=== PATIENT | male | born 1945 | race Caucasian/White ===

== ENCOUNTER 2017-02-11 13:37 | Emergency (ER) | payer OTHER ==
[~2017-02-11] VITALS: Ht 172.7 cm; Wt 79.4 kg
[~2017-02-11 13:37] MED LIST: AUGMENTIN 875875 MG PO; CHILDREN'S ASPI81 M1 PO; CITALOPRAM HBR40 MG PO; DOXYCYCLINE HY100 M4 PO; FINASTERIDE5 M1 PO; FISH OIL 1,2001 EAC2 PO; GLIPIZIDE ER2.5 M1 PO; KEFLEX500 MG PO; METFORMIN HCL500 M2 PO; TAMSULOSIN HYD0.4 MG PO; WELLBUTRIN XL300 M2 PO; ZOCOR10 M1 PO
--- NOTE | 2017-02-11 13:50 | ED MVC/FALL/TRAUMA COMPLAINT ---
History of Present Illness General Chief Complaint: Fall Stated Complaint: FALL Source: patient, family, old records, EMS Exam Limitations: no limitations Vital Signs & Intake/Output Vital Signs & Intake/Output Vital Signs Date Time Temp Pulse Resp B/P B/P Pulse O2 O2 Flow FiO2 Mean Ox Delivery Rate 02/11 1510 97.9 61 18 125/68 96 Room Air 02/11 1421 96 Room Air 02/11 1338 97.7 75 18 162/77 96 Room Air Allergies Coded Allergies: NO KNOWN ALLERGIES (08/13/14) FROM UNCODED ALLERGIES - [facility] 08/13/14 Reconcile Medications Aspirin (Children's Aspirin) 81 MG TAB.CHEW 1 TAB PO D HEART HEALTH (Reported ) Bupropion HCl (Wellbutrin XL) 300 MG TAB.ER.24H 1 TAB PO DAILY DEPRESSION ( Reported) Citalopram Hydrobromide (Citalopram HBr) 40 MG TABLET 1 TAB PO DAILY DEPRESSION (Reported) Diclofenac Potassium 50 MG TABLET 1 TAB PO D PAIN CONTROL (Reported) Donepezil HCl 23 MG TABLET 1 TAB PO QPM DEMENTIA (Reported) Doxycycline Hyclate 100 MG TABLET 1 TAB PO BID cellulitis Finasteride 5 MG TABLET 1 TAB PO DAILY PROSTATE (Reported) Glipizide (Glipizide ER) 2.5 MG TAB.ER.24 1 TAB PO DAILY DIABETES (Reported) Meloxicam 15 MG TABLET 1 TAB PO DAILY PAIN CONTROL (Reported) Metformin HCl (Metformin HCl ER) 500 MG TAB.ER.24 1 TAB PO BID DIABETES ( Reported) Clayton-3S/Dha/Epa/Fish Oil (Fish Oil 1,200 MG Softgel) 360-1,200MG CAPSULE 1 TAB PO D HEART HEALTH (Reported) Simvastatin (Zocor*) 10 MG TABLET 1 TAB PO QPM HEART HEALTH (Reported) Tamsulosin HCl (Flomax) 0.4 MG CAP.ER.24H 2 CAP PO DAILY BLADDER HEALTH ( Reported) Triage Note: RECEIVED 71 YO MALE BIBA FROM HOME WITH LAC TO FOREHEAD. PT WAS PICKING UP A CINDERBLOCK AND HE LOST BALANCE AND HIT HIS HEAD ON A CINDERBLOCK. NO LOC, PT SUSTAINED A 2" LAC TO FOREHEAD. DRESSING APPLIED TO FOREAHEAD BY EMS. PT DENIES PAIN OR DIZZINESS Triage Nurses Notes Reviewed? yes Onset: Abrupt Duration: hour(s): (1), constant Timing: single episode today Severity: mild Severity Numbers: 1 Injuries/Fall Location: head Method of Injury: direct blow Loss of Consciousness: no loss of consciousness No Modifying Factors: none Associated Symptoms: denies HPI: 71-year-old male with history of diabetes high cholesterol presents status post mechanical fall when he lost his balance striking his forehead against a cinderblock is attempting to grape picker and move. There is no loss of consciousness he now presents complaining of a mild aching pain at the site of laceration to his forehead. There's been no changes in mental status per his he is not on any anticoagulants. Patient denies headache vision changes neck or back pain no arm or leg injury no chest pain shortness breath or abdominal pain no nausea or vomiting. (RAFAEL GOETZ) Past History Travel History Traveled to [place] past 21 day No Medical History Any Pertinent Medical History? see below for history Neurological: NONE EENT: NONE Cardiovascular: hyperlipidemia Respiratory: NONE Gastrointestinal: NONE Hepatic: NONE Renal: BLADDER CONTROL ISSUES Musculoskeletal: NONE Psychiatric: anxiety Endocrine: diabetes Blood Disorders: NONE Cancer(s): NONE DUST SAMPLER/Reproductive: NONE Other Medical Hx: BPH, hard of hearing History of MRSA: No History of VRE: No History of CDIFF: No Surgical History Surgical History: RIGHT FIRST TOE AMPUTATION Psychosocial History Who do you live with Spouse Services at Home None What is your primary language Tongan Tobacco Use: Never used Family History Family History, If Any: FATHER (Diabetes). BROTHER (Diabetes). Hx Contributory? No (RAFAEL GOETZ) Review of Systems Review of Systems Constitutional: Reports: see HPI. All Other Systems: Reviewed and Negative Comments Review of systems: See HPI, All other systems negative. Constitutional, no chills no fever, no malaise HEENT: No visual changes no sore throat no congestion Cardiovascular: No chest pain , no palpitation Skin: no rashes, no change in skin Respiratory: No dyspnea no cough no sputum GI: No nausea no vomiting, : No dysuria Muscle skeletal: No joint pain, no joint swelling, no back pain, no neck pain, Neurologic: No numbness no confusion, no headache Psych: No stress Heme/endocrine: No bruising Immunology: No lymphadenopathy (RAFAEL GOETZ) Physical Exam Physical Exam General Appearance: well developed/nourished, no apparent distress, alert, awake Comments: Well-developed well-nourished patient in no apparent distress. Head/Face: There is a 7 cm superficial irregular laceration noted to the forehead no active bleeding no surrounding swelling ecchymosis the rest of the scalp atraumatic no maxillary/frontal sinus tenderness, no facial swelling Eyes: PERRL, EOMI, no conjunctival injection. No nystagmus no subconjunctival hemorrhage Ear:External auditory canal and Tympanic membranes clear, no erythema, no FB. No hemotympanum Nose: atraumatic.Normal inspection: No bleeding, no septal hematoma Throat: Moist mucous membranes.Pharynx normal. No pharyngeal erythema/exudate seen. No stridor/drooling or assymetry. No swelling or edema. Neck: Supple, no lymphadenopathy, FROM Back: FROM Cardiovascular: Regular rate and rhythms no murmurs rubs or gallops, Respiratory: Chest nontender.There were no bony deformities, no asymmetry. No respiratory distress. Patient speaking in full complete sentences. Breath sounds clear to auscultation bilaterally: NO W/R/R Extremities: full range of motion the rest of the extremities are atraumatic patient has full range motion of all extremities Neuro: awake, alert, and oriented to person, place and time. There were no obvious focal neurologic abnormalities. Skin: Warm & dry;No appreciable rash on exposed skin superficial abrasion noted to the right anterior knee no swelling Psych: Mood affect normal, normal memory normal judgment. Core Measures ACS in differential dx? No Severe Sepsis Present: No Septic Shock Present: No (RAFAEL GOETZ) Progress Differential Diagnosis: C/T/L spine injury, ext injury, ICH, pelvis injury, pnemothorax, spinal cord injury Plan of Care: Wound was thoroughly irrigated with normal saline Betadine peroxide and anesthetized with lidocaine 1% 10 mL, 18 sutures were placed by me. Discussed with the patient and his possibility of foreign body not seen on examination still exist discussed on the CAT scan results the sutures will dissolve on their own, bacitracin sterile dressings were applied to the wound, I discussed with him need for close follow-up with his primary-care return to ER anytime sooner with any concerns or signs of infection. They feel comfortable with plan cleared for discharge Diagnostic Imaging: Viewed by Me: CT Scan. Discussed w/RAD: CT Scan. Radiology Impression: PATIENT: MONSE WILKS PRESENT AGE: 71 PATIENT ACCOUNT NO: [id number] : 43 LOCATION: [facility] ORDERING PHYSICIAN: RAFAEL RINCON SERVICE DATE: 02/11/17 EXAM TYPE: CAT - CT HEAD WO IV CONTRAST EXAMINATION: CT HEAD WITHOUT CONTRAST CLINICAL INFORMATION: Dementia. Trauma to head. COMPARISON: 01/08/2014. TECHNIQUE: Contiguous helical images of the brain were obtained without IV contrast. Multiplanar reconstructions were performed. DLP: 643 mGy-cm. FINDINGS: There are no pathologic extra-axial fluid collections. The lateral, third, fourth ventricles are prominent, stable, but age-appropriate and concordant with the appearance of the sulci. There is no evidence for acute intraparenchymal hemorrhage or infarct. There is neither mass nor mass effect. There is no shift of midline structures. The paranasal sinuses and mastoid air cells are clear. There are no osseous lesions. IMPRESSION: No evidence for acute intracranial injury. Stable age-appropriate appearance of the brain. DICTATED BY: MITESH HE MD DATE/ TIME DICTATED:02/11/171427 STORE OPERATIONS ASSOCIATE:SCOTTIE DATE/TIME TRANSCRIBED: 02/11/171427 CONFIDENTIAL, DO NOT COPY WITHOUT APPROPRIATE AUTHORIZATION. < Electronically signed in Other Vendor System> SIGNED BY: MITESH HE MD 02/11/17 1438 (RAFAEL GOETZ) Departure Departure Time of Disposition: 1450 Disposition: HOME OR SELF CARE Condition: Stable Clinical Impression Primary Impression: Minor head injury without loss of consciousness Secondary Impressions: Scalp laceration Referrals: MINDY [place],NATHALIE Ching Additional Instructions: THE SUTURES WILL DISSOLVE ON THEIR OWN. KEEP WOUNDS CLEAN AND COVERED. FOLLOW UP WITH HIS PMD OR RETURN TO THE ER WITH ANY CONCERNS OR SIGNS OF INFECTION.TYLENOL ORMOTRIN FOR PAIN Departure Forms: Customer Survey General Discharge Information (RAFAEL GOETZ) PA/AIRCRAFT ENGINE ASSEMBLER Co-Sign Statement Statement: ED Attending supervision documentation- [] I saw and evaluated the patient. I have also reviewed all the pertinent lab results and diagnostic results. I agree with the findings and the plan of care as documented in the PA's/AIRCRAFT ENGINE ASSEMBLER's documentation. [X] I have reviewed the ED Record and agree with the PA's/AIRCRAFT ENGINE ASSEMBLER's documentation. [] Additions or exceptions (if any) to the PAs/AIRCRAFT ENGINE ASSEMBLER's note and plan are summarized below: [] (DAPHNE [place],TAMICA Mckee) Procedures Laceration/Wound Repair Laceration/Wound Repair: Wound Location: face Wound's Depth, Shape: irregular, superficial Wound Length (cm): 7 Wound Explored: clean, no foreign body removed, irrigated extensively Irrigated w/ Saline (ccs): 200 Betadine Prep? Yes Anesthesia: 1% lidocaine Volume Anesthetic (ccs): 10 Wound Repaired With: sutures, Steri-strips Suture Size/Type: 5:0 Number of Sutures: 18 Layer Closure? No Sterile Dressing Applied: Yes (RADHA RINCON,RAFAEL)
[2017-02-11] MEDS ORDERED: MELOXICAM15 M1 PO (14:03)
[2017-02-11] MEDS ORDERED: FLOMAX0.4 M1 PO (14:07)
[2017-02-11] MEDS ORDERED: DICLOFENAC POTA50 M1 PO (14:08)
[2017-02-11] MEDS ORDERED: DONEPEZIL HCL23 MG PO (14:16)
--- NOTE | 2017-02-11 14:38 | CT SCAN REPORT ---
EXAMINATION: CT HEAD WITHOUT CONTRAST CLINICAL INFORMATION: Dementia. Trauma to head. COMPARISON: 01/08/2014. TECHNIQUE: Contiguous helical images of the brain were obtained without IV contrast. Multiplanar reconstructions were performed. DLP: 643 mGy-cm. FINDINGS: There are no pathologic extra-axial fluid collections. The lateral, third, fourth ventricles are prominent, stable, but age-appropriate and concordant with the appearance of the sulci. There is no evidence for acute intraparenchymal hemorrhage or infarct. There is neither mass nor mass effect. There is no shift of midline structures. The paranasal sinuses and mastoid air cells are clear. There are no osseous lesions. IMPRESSION: No evidence for acute intracranial injury. Stable age-appropriate appearance of the brain.
[2017-02-11 15:10] VITALS: BP 125/68
== END 2017-02-11 15:11 ==
LOC: ERH 13:37
DX: S09.90XA Unspecified injury of head, initial encounter (principal); S01.01XA Laceration without foreign body of scalp, initial encounter; W19.XXXA Unspecified fall, initial encounter; Y93.89 Activity, other specified; Y92.9 Unspecified place or not applicable